=== PATIENT | male | born 1975 | race Caucasian/White ===

== ENCOUNTER 2016-12-31 02:10 | Observation (INO) | payer OTHER ==
[2016-12-31 02:29] VITALS: RESP 16
[2016-12-31] MEDS ORDERED: ACETAMINOPHEN TAB 325 MG TAB PO PRN (02:48)
[2016-12-31] MEDS ORDERED: HYDROmorphone 1 MG/ML 1 ML SYRINGE IV PRN (02:48)
[2016-12-31] MEDS ORDERED: NALOXONE 0.4 MG/ML 1 ML VIAL IV PRN (02:48)
[2016-12-31] MEDS ORDERED: ONDANSETRON 4 MG/2 ML VIAL IVP PRN (02:48)
--- NOTE | 2016-12-31 02:57 | ED ---
Abdominal Pain HPI - General Chief Complaint: Abdominal Pain Stated Complaint: abd pain Time Seen by Provider: 12/31/16 02:23 Source: patient, EMS Mode of arrival: EMS - History of Present Illness Initial Comments: This patient is a 41-year-old man transferred here from outside hospital. The patient went [facility] for abdominal pain. The pain has been going on for about 12 days. It is located in the left lower quadrant. Is aching and severe , though he has pain medication and now is down to mild to moderate. The patient states the pain is worse with outpatient and certainly movements. He kelsey had some improvement when he was given a course of ciprofloxacin by his physician for suspected urinary tract infection. It gone to see his doctor had a week of this medication, and then the pain started worsening again. Patient states that he has had diarrhea over the past week or so. Patient went to the other hospital [facility] and was diagnosed with diverticulitis with an abscess and requested to come here for further treatment. MD Complaint: abdominal pain Onset/Timin -: days(s) Location: LLQ Radiation: none Migration to: no migration Severity: severe Quality: aching Consistency: constant Improves With: medication Worsens With: bowel movement, other (Patient) Associated Symptoms: diarrhea, fever Treatments Prior to Arrival: other (Antibiotics) - Related Data Allergies Allergy/AdvReac Type Severity Reaction Status Date / Time No Known Allergies Allergy Verified 12/31/16 03:01 Review of Systems ROS Statement: Those systems with pertinent positive or pertinent negative responses have been documented in the HPI. ROS Other: All systems not noted in ROS Statement are negative. Constitutional: Reports: fever Respiratory: Denies: cough, dyspnea Cardiovascular: Denies: chest pain, palpitations, edema, syncope Gastrointestinal: Reports: abdominal pain, diarrhea. Denies: nausea, vomiting, constipation, melena, hematochezia Genitourinary: Denies: dysuria, hematuria, testicular pain Musculoskeletal: Denies: back pain Skin: Denies: rash Neurological: Denies: headache, weakness, numbness Past Medical History Past Medical History: No Reported History History of Any Multi-Drug Resistant Organisms: None Reported Past Surgical History: No Surgical Hx Reported Past Psychological History: No Psychological Hx Reported Smoking Status: Current every day smoker Past Alcohol Use History: None Reported Past Drug Use History: None Reported General Exam General appearance: alert, in no apparent distress Head exam: Present: atraumatic, normocephalic Eye exam: Present: normal appearance. Absent: scleral icterus, conjunctival injection ENT exam: Present: normal oropharynx Respiratory exam: Present: normal lung sounds bilaterally. Absent: respiratory distress, wheezes, rales, rhonchi, stridor Cardiovascular Exam: Present: regular rate, normal rhythm, normal heart sounds. Absent: systolic murmur, diastolic murmur, rubs, gallop GI/Abdominal exam: Present: soft, tenderness (Lower quadrant), guarding, normal bowel sounds. Absent: distended, rebound, rigid, mass, pulsatile mass, hernia Extremities exam: Present: normal inspection, normal capillary refill. Absent: pedal edema, calf tenderness Back exam: Present: normal inspection. Absent: CVA tenderness (R), CVA tenderness (L) Neurological exam: Present: alert Skin exam: Present: warm, dry, intact, normal color. Absent: rash Course Vital Signs 12/31/16 12/31/16 02:23 03:39 Temperature 97.3 F L 98.0 F Pulse Rate 78 83 Respiratory 16 16 Rate Blood Pressure 136/86 114/66 O2 Sat by Pulse 96 96 Oximetry Disposition Clinical Impression: Diverticulitis, Pelvic abscess Disposition: ADMITTED IP TO THIS HOSP Condition: Fair
[2016-12-31] MEDS: SODIUM CHLORIDE 0.9% 1,000 ML IV SCH ×3 (03:05→20:40)
[2016-12-31] MEDS: metroNIDAZOLE-NS PMX 500 MG in SALINE 1 100ML.BAG IVPB SCH ×3 (03:37→20:40)
[2016-12-31] MEDS: FAMOTIDINE 20 MG TAB PO SCH ×2 (08:59→20:40)
[2016-12-31] MEDS: LEVOFLOXACIN 750MG-D5W PMX 750 MG in DEXTROSE/WATER 1 150ML.BAG IVPB SCH (08:59)
--- NOTE | 2016-12-31 10:27 | P.GSCN ---
<Willa Chavez - Last Filed: 12/31/16 10:18> History of Present Illness Consult date: 12/31/16 Reason for Consult: Abdominal pain History of present illness: 41-year-old male presented to the emergency room at [facility] December 30 to be evaluated for persistent epigastric pain left lower quadrant frequency with urination onset 1 week prior. Patient stated that he was diagnosed and treated for urinary tract infection with Cipro 1 week prior when he presented to his PCPs office with the above-mentioned symptoms. Patient stated that he completed the antibiotic but the pain continued to persist. Patient points to the left lower quadrant as to the reference point. Patient stated that he had frequent loose stools intense pain unbearable to the left lower quadrant came into [facility] with the above findings. At [facility] a CAT scan of the abdomen pelvis with IV contrast showed severe sigmoid diverticulitis with a 2.4 cm mass between the sigmoid colon and the left pelvic sidewall patient elected to be transferred to [facility] in [place] to be treated for the above-mentioned symptoms. A surgical eval has been requested. Patient denies any prior episodes of abdominal pain C. diff obtained here was negative Patient continues to report having left lower quadrant pain but has improved since admission. Patient states he has not had any prior colonoscopy gives no significant past surgical or medical history Review of Systems unremarkable except as mentioned in the present illness Past Medical History Past Medical History: No Reported History History of Any Multi-Drug Resistant Organisms: None Reported Past Surgical History: No Surgical Hx Reported Past Anesthesia/Blood Transfusion Reactions: No Reported Reaction Past Psychological History: No Psychological Hx Reported Smoking Status: Current every day smoker Past Alcohol Use History: None Reported Past Drug Use History: None Reported - Past Family History Mother Additional Family Medical History / Comment(s): Spot on colon back in June, Cancer Father Family Medical History: Diabetes Mellitus Medications and Allergies Home Medications Medication Instructions Recorded Confirmed Type No Known Home Medications [No 12/31/16 12/31/16 History Known Home Medications] Allergies Allergy/AdvReac Type Severity Reaction Status Date / Time No Known Allergies Allergy Verified 12/31/16 09:06 Surgical - Exam Vital Signs Temp Pulse Resp BP Pulse Ox 97.3 F L 78 16 136/86 96 12/31/16 02:23 12/31/16 02:23 12/31/16 02:23 12/31/16 02:12/31/16 02:23 GENERAL APPEARANCE: 41-year-old male patient is alert, oriented, in no acute distress. VITAL SIGNS: Reviewed HEENT: Head is normocephalic and atraumatic. Pupils are equal and reactive. The nares are patent. Oropharynx is clear without lesions. NECK: Supple without lymphadenopathy. Traches midline. HEART: S1, S2. Regular rate and rhythm. No murmur noted LUNGS: No crackles or wheezes are heard. Adequate air movement bilaterally on room air no cough noted no shortness of breath ABDOMEN: Soft, slight tenderness left lower quadrant nondistended with good bowel sounds. No peritoneal signs. No palpable organomegaly or masses. Continues to report having frequent loose stools EXTREMITIES: Normal skin color and turgor. No cyanosis, rash, ulceration, clubbing or edema. Radial pedal pulses are 2/4 bilaterally. NEUROLOGICAL: No focal deficits. Strength and sensation are grossly intact. Assessment and Plan Plan: Impression Present on admission left lower quadrant pain with frequent stooling suspect due to severe sigmoid diverticulitis with 2.4 cm abscess between sigmoid colon and left pelvic sidewall Present on admission leukocytosis Frequent stooling with the stool negative for C. diff History of treatment for UTI completed antibiotic course of Cipro 1 week prior plan Continue IV antibiotic Flagyl and Levaquin as ordered Repeat labs in the morning DVT and GI prophylaxis Pain control Keep nothing by mouth Further surgical recommendations pending Thank you for allowing us to participate in the surgical management of your patient The above impression and plan of care have been discussed and directed by signing physician. Willa Chavez nurse practitioner acting as scribe for signing physician. <Emily Barriga N - Last Filed: 12/31/16 15:26> Surgical - Exam Vital Signs Temp Pulse Resp BP Pulse Ox 97.3 F L 78 16 136/86 96 12/31/16 02:23 12/31/16 02:23 12/31/16 02:12/31/16 02:23 12/31/16 02:23
[2016-12-31 17:41] LABS: Basophils # (A) 0.1 k/uL (0-0.2); Basophils % (A) 0 %; CH 29.8; CHCM 32.8; Eosinophils # (A) 0.2 k/uL (0-0.7); Eosinophils % (A) 1 %; HCT 38.8 % (39.0-53.0); HDW 2.76; HGB 13.2 gm/dL (13.0-17.5); Luc # (Auto) 0.31; Luc % (Auto) 3; Lymphocytes # (A) 1.9 k/uL (1.0-4.8); Lymphocytes % (A) 16 %; MCH 30.9 pg (25.0-35.0); Mean Platelet Volume 6.8; Monocytes # (A) 0.8 k/uL (0-1.0); Monocytes % (A) 7 %; Neutrophils # (A) 8.3 k/uL (1.3-7.7); Neutrophils % (A) 73 %; RBC 4.26 m/uL (4.30-5.90); RDW 12.3 % (11.5-15.5); WBC 11.5 k/uL (3.8-10.6)
--- NOTE | 2016-12-31 18:07 | P.PN ---
Progress Note - Text Patient reevaluated this evening. He reports his abdominal pain in the last 24 hours is moderately improved. He is passing flatus. He still reports left lower quadrant abdominal pain. He discloses a strong family history of stomach cancer in his grandfather as well as colon cancer in his mother. I reviewed with him need for upper and lower endoscopy within the next 6-8 weeks following his diverticulitis attack. Recommend dietary consultation for diverticulitis diet. May start liquid diet. Potential discharge in 24-48 hours pending clinical improvement. No need for IR drainage with small size of abscess which should improve with antibiotics.
--- NOTE | 2016-12-31 22:12 | P.HPIM ---
History of Present Illness H&P Date: 12/31/16 Chief Complaint: Abdominal pain Patient is a 41-year-old gentleman without significant past history was sent from [facility] for further evaluation of diverticulitis and abscess. Patient presented to hospital with complaints of abdominal pain mainly left lower quadrant. No fever but subjective chills. Pain worsens with movement.. No history of diverticulosis in the past. Patient was recently treated for urinary tract infection with ciprofloxacin. After completion of antibiotic course pain is still worsening which made him come to Hospital. Patient denied any chest pain or short of breath. No nausea vomiting or abdominal pain. Patient denied any prior history of hypertension or diabetes. At [facility] a CAT scan of the abdomen pelvis with IV contrast showed severe sigmoid diverticulitis with a 2.4 cm mass between the sigmoid colon and the left pelvic sidewall patient elected to be transferred to [place] in [facility]. Currently patient is nothing by mouth and was evaluated by general surgery recommended conservative management for small abscesses. Currently on antibiotics Levaquin and metronidazole. Currently patient did improve symptomatically. Review of Systems CONSTITUTIONAL: No fever, but subjective chills. no malaise, no fatigue. HEENT: No recent visual problems or hearing problems. Denied any sore throat. CARDIOVASCULAR: No chest pain, orthopnea, PND, no palpitations, no syncope. PULMONARY: , No cough or sputum production. no hemoptysis. GASTROINTESTINAL: No diarrhea, no nausea, no vomiting, positive left lower quadrant abdominal pain. NEUROLOGICAL: No headaches, no weakness, no numbness. HEMATOLOGICAL: Denies any bleeding or petechiae. GENITOURINARY: Denies any burning micturition, frequency, or urgency. MUSCULOSKELETAL/RHEUMATOLOGICAL: Denies any joint pain, swelling, or any muscle pain. ENDOCRINE: Denies any polyuria or polydipsia. The rest of the 14-point review of systems is negative. Past Medical History Past Medical History: No Reported History History of Any Multi-Drug Resistant Organisms: None Reported Past Surgical History: No Surgical Hx Reported Past Anesthesia/Blood Transfusion Reactions: No Reported Reaction Past Psychological History: No Psychological Hx Reported Smoking Status: Current every day smoker Past Alcohol Use History: None Reported Past Drug Use History: None Reported - Past Family History Mother Additional Family Medical History / Comment(s): Spot on colon back in June, Cancer Father Family Medical History: Diabetes Mellitus Medications and Allergies Home Medications Medication Instructions Recorded Confirmed Type No Known Home Medications [No 12/31/16 12/31/16 History Known Home Medications] Allergies Allergy/AdvReac Type Severity Reaction Status Date / Time No Known Allergies Allergy Verified 12/31/16 09:06 Physical Exam Vitals: Vital Signs Temp Pulse Pulse Resp BP BP Pulse Ox 12/31/16 07:00 97.8 F 74 16 119/71 98 12/31/16 04:03 98.6 F 73 16 122/70 92 L 12/31/16 03:39 98.0 F 83 16 114/66 96 12/31/16 02:23 97.3 F L 78 16 136/86 96 Intake and Output 12/30/16 12/31/16 12/31/16 22:59 06:59 14:59 Intake Total 250 Output Total 400 Balance -150 Intake: Intake, IV Titration 250 Amount Sodium Chloride 0.9% 1, 250 000 ml @ 125 mls/hr IV . Q8H [facility] Rx#:[id number] Output: Urine 400 Other: Voiding Method Toilet Weight 84.368 kg PHYSICAL EXAMINATION: Patient is lying in the bed comfortably, no acute distress, awake alert and oriented.. HEENT: Normocephalic. Neck is supple. Pupils reactive. Nostrils clear. Oral cavity is moist. Ears reveal no drainage. Neck reveals no JVD, carotid bruits, or thyromegaly. CHEST EXAMINATION: Trachea is central. Symmetrical expansion. Lung dominguez clear to auscultation and percussion. CARDIAC: Normal S1, S2 with no gallops. No murmurs ABDOMEN: Soft. Bowel sounds normal. No organomegaly. No abdominal bruits. Left lower quadrant tenderness with minimal rebound. Extremities reveal no edema. No clubbing or cyanosis Neurologically awake, alert, oriented x3 with well-coordinated movements. Skin: no rash or skin lesions Musculoskeletal: no joint swelling or deformity. Results CBC & Chem 7: 12/31/16 17:20 Thrombosis Risk Factor Assmnt - DVT/VTE Prophylaxis DVT/VTE Prophylaxis: Pharmacologic Prophylaxis ordered - Choose All That Apply Any of the Below Risk Factors Present?: Yes Each Factor Represents 1 point: Age 41-60 years Other Risk Factors: No Thrombosis Risk Factor Assessment Total Risk Factor Score: 1 Thrombosis Risk Factor Assessment Level: Low Risk Assessment and Plan Plan: #1 acute severe sigmoid diverticulitis with abscess/2.4 cm mass between colon and pelvic wall #2 left lower quadrant abdominal pain. #3 recent treatment for UTI with Cipro #4 DVT prophylaxis Plan: Patient be continued on IV hydration and continue with nothing by mouth. Continue with antibiotics. General surgery recommended conservative management due to small abscess. We will continue to follow closely. Further recommendations based on the clinical course. Recheck CBC and BMP tomorrow a.m.
[2017-01-01] MEDS: metroNIDAZOLE-NS PMX 500 MG in SALINE 1 100ML.BAG IVPB SCH ×2 (04:16→11:11)
[2017-01-01] MEDS: SODIUM CHLORIDE 0.9% 1,000 ML IV SCH ×2 (04:18→11:11)
[2017-01-01 07:43] VITALS: BP 110/77; PULSE 75; TEMP 97.9
[2017-01-01] MEDS: FAMOTIDINE 20 MG TAB PO SCH (08:08)
[2017-01-01] MEDS: LEVOFLOXACIN 750MG-D5W PMX 750 MG in DEXTROSE/WATER 1 150ML.BAG IVPB SCH (08:08)
[2017-01-01 09:00] LABS: Basophils # (A) 0.1 k/uL (0-0.2); Basophils % (A) 1 %; CH 30.6; CHCM 34.1; Eosinophils # (A) 0.2 k/uL (0-0.7); Eosinophils % (A) 2 %; HCT 39.2 % (39.0-53.0); HDW 2.79; Luc # (Auto) 0.18; Luc % (Auto) 2; Lymphocytes # (A) 2.2 k/uL (1.0-4.8); Lymphocytes % (A) 23 %; MCH 29.8 pg (25.0-35.0); MCHC 33.1 g/dL (31.0-37.0); MCV 90.1 fL (80.0-100.0); Mean Platelet Volume 7.9; Monocytes # (A) 0.7 k/uL (0-1.0); Monocytes % (A) 7 %; Neutrophils % (A) 65 %; RBC 4.35 m/uL (4.30-5.90); RDW 13.4 % (11.5-15.5); WBC 9.2 k/uL (3.8-10.6); WBC (Perox) 9.11
[2017-01-01] MEDS ORDERED: HEPARIN SODIUM,PORCINE 5,000 UNIT/ML 1 ML VIAL SQ SCH (09:00)
[2017-01-01 09:15] LABS: Anion Gap 13 mmol/L; Blood Urea Nitrogen 11 mg/dL (9-20); Calcium 8.6 mg/dL (8.4-10.2); Carbon Dioxide 21 mmol/L (22-30); Chloride 109 mmol/L (98-107); Glucose 75 mg/dL (74-99); Non-African American GFR(MDRD) >60 (>60 ml/min/1.73 sqM); Potassium 4.1 mmol/L (3.5-5.1); Sodium 143 mmol/L (137-145)
--- NOTE | 2017-01-01 11:30 | P.PN ---
Subjective 41-year-old gentleman was admitted for the diverticulitis and possibility of abscess. Patient was evaluated by surgery and surgery do not believe that patient needs surgical intervention at this point of time. Patient's pain is significantly controlled and patient is being started on full liquid diet today. Patient is able to tolerate antibiotics levofloxacin and metronidazole very well. Patient denied any fever, chills denied any abdominal pain has a couple loose stools today patient which is significantly improved compared to yesterday. Patient denied any cough shortness of breath. Objective - Vital Signs Vital signs: Vital Signs Temp 97.9 F 01/01/17 07:42 Pulse 75 01/01/17 07:42 Resp 16 01/01/17 07:42 BP 110/77 01/01/17 07:42 Pulse Ox 97 01/01/17 07:42 Intake & Output 12/31/16 01/01/17 01/01/17 18:59 06:59 18:59 Intake Total 938 2000 Balance 938 2000 Intake: Intake, IV Titration 938 2000 Amount Sodium Chloride 0.9% 1, 938 2000 000 ml @ 125 mls/hr IV . Q8H [facility] Rx#:[id number] Other: Voiding Method Toilet Toilet # Voids 3 - Exam PHYSICAL EXAMINATION: GENERAL: The patient is alert and oriented x3, not in any acute distress. Well developed, well nourished. HEENT: Pupils are round and equally reacting to light. EOMI. No scleral icterus. No conjunctival pallor. Normocephalic, atraumatic. No pharyngeal erythema. No thyromegaly. CARDIOVASCULAR: S1 and S2 present. No murmurs, rubs, or gallops. PULMONARY: Minimal expiratory wheezing was appreciated. ABDOMEN: Soft, nontender, nondistended, normoactive bowel sounds. No palpable organomegaly. MUSCULOSKELETAL: No joint swelling or deformity. EXTREMITIES: No cyanosis, clubbing, or pedal edema. NEUROLOGICAL: Gross neurological examination did not reveal any focal deficits. SKIN: No rashes. - Labs CBC & Chem 7: 01/01/17 07:40 01/01/17 07:40 Labs: Abnormal Lab Results - Last 24 Hours (Table) 12/31/16 01/01/17 Range/Units 17:20 07:40 WBC 11.5 H (3.8-10.6) k/uL RBC 4.26 L (4.30-5.90) m/uL Hct 38.8 L (39.0-53.0) % Neutrophils # 8.3 H (1.3-7.7) k/uL Chloride 109 H (98-107) mmol/L Carbon Dioxide 21 L (22-30) mmol/L Assessment and Plan Plan: #1 acute severe sigmoid diverticulitis with possible abscess: Continue with antibiotics, IV fluids patient will be advanced. #2 possible COPD with acute exacerbation, patient is a smoker never was diagnosed with COPD. Patient will be started on Symbicort and albuterol. #3 DVT prophylaxis
[2017-01-01] MEDS ORDERED: IPRATROPIUM-ALBUTEROL 3 ML NEB INHALATION PRN (11:31)
--- NOTE | 2017-01-01 13:13 | P.PN ---
Subjective Pleasant 41-year-old male sitting up in bed states there is less stooling this morning has only had 1. The stool is forming. He states he's having less abdominal pain. Denies any nausea vomiting tolerating diet of clear liquid The white count is down to 9.2 electrolytes within normal range is afebrile patient currently is on IV Flagyl and Levaquin for treatment of acute sigmoid diverticulitis with small abscess which should improve with antibiotic therapy Objective - Vital Signs Vital signs: Vital Signs Temp 97.9 F 01/01/17 07:42 Pulse 75 01/01/17 07:42 Resp 16 01/01/17 07:42 BP 110/77 01/01/17 07:42 Pulse Ox 97 01/01/17 07:42 Intake & Output 12/31/16 01/01/17 01/01/17 18:59 06:59 18:59 Intake Total 938 2000 Balance 938 2000 Intake: Intake, IV Titration 938 2000 Amount Sodium Chloride 0.9% 1, 938 2000 000 ml @ 125 mls/hr IV . Q8H [facility] Rx#:[id number] Other: Voiding Method Toilet Toilet # Voids 3 - Exam Physical exam 41-year-old male resting in bed appears in no acute distress pleasant cooperative oriented 3 Lungs essentially clear adequate air movement on room air no shortness of breath Heart S1-S2 audible regular Abdomen slight tenderness to the left lower quadrant states it's improving no nausea no vomiting no frequent stooling Extremities no edema - Labs CBC & Chem 7: 01/01/17 07:40 01/01/17 07:40 Labs: Abnormal Lab Results - Last 24 Hours (Table) 12/31/16 01/01/17 Range/Units 17:20 07:40 WBC 11.5 H (3.8-10.6) k/uL RBC 4.26 L (4.30-5.90) m/uL Hct 38.8 L (39.0-53.0) % Neutrophils # 8.3 H (1.3-7.7) k/uL Chloride 109 H (98-107) mmol/L Carbon Dioxide 21 L (22-30) mmol/L Assessment and Plan Plan: Impression Present on admission left lower quadrant pain with frequent stooling suspect due to severe sigmoid diverticulitis with 2.4 cm abscess between sigmoid colon and left pelvic sidewall Present on admission leukocytosis Frequent stooling with the stool negative for C. diff History of treatment for UTI completed antibiotic course of Cipro 1 week prior A positive family history of stomach cancer grandfather colon cancer mother plan Continue IV antibiotic Flagyl and Levaquin as ordered Repeat labs in the morning DVT and GI prophylaxis Pain control Advance diet Prepped for probable discharge in the next 24 hours Will need upper and lower endoscopic within the next 6-8 weeks following treatment for the diverticulitis Dietary consult for diverticulitis diet The above impression and plan of care have been discussed and directed by signing physician. Willa Chavez nurse practitioner acting as scribe for signing physician.
--- NOTE | 2017-01-01 14:42 | P.PN ---
Progress Note - Text Patient had tolerated full liquid diet stated there was a significant improvement in the left lower quadrant pain white count was down to 9.2 this morning electrolytes within therapeutic range patient was anxious to be discharged home. Patient was seen by the dietitian did receive information on a diverticulitis diet. Patient is also aware that he needs to have an upper and lower endoscopic done in 5-6 weeks he will schedule an appointment with Dr. Barriga. Did discuss with the attending who agreed the patient could be discharged The above impression and plan of care have been discussed and directed by signing physician. Willa Chavez nurse practitioner acting as scribe for signing physician.
[2017-01-01 14:43] VITALS: BMI 26.6
--- NOTE | 2017-01-01 15:09 | P.DS ---
Providers Date of admission: 12/31/16 02:53 Attending physician: Ezequiel Liu Consults: 12/31/16 02:49 Consult Physician Routine Consulting Provider: Emily Barriga Consult Reason/Comments: Diverticulitis with pelvic abscess Do you want consulting provider notified?: Already Contacted Primary care physician: Physician Nonstaff Hospital Course: Patient is being discharged today on oral antibiotics and patient is able to tolerate full liquid diet will be advanced to soft diet upon discharge. Patient Condition at Discharge: Fair Plan - Discharge Summary New Discharge Prescriptions: New metroNIDAZOLE [Flagyl] 500 mg PO TID #42 tab Levofloxacin [Levaquin] 500 mg PO DAILY #14 tab Discharge Medication List Levofloxacin [Levaquin] 500 mg PO DAILY #14 tab 01/01/17 [Rx] metroNIDAZOLE [Flagyl] 500 mg PO TID #42 tab 01/01/17 [Rx] Follow up Appointment(s)/Referral(s): Emily Barriga MD [STAFF PHYSICIAN] - 02/12/17 1:40 pm Nonstaff,Physician [Primary Care Provider] - 1-2 days Patient Instructions/Handouts: Diverticulitis (DC) Activity/Diet/Wound Care/Special Instructions: Dietitian to provide information on a diverticulitis diet advance diet as tolerated Will need to be scheduled for an upper or lower endoscopic within the next 6-8 weeks following treatment for his diverticulitis Discharge Disposition: HOME SELF-CARE
[2017-01-01] MEDS ORDERED: SYMBICORT 160-4.5 MCG INHALER INHALATION SCH (20:00)
== END 2017-01-01 16:30 | disposition home or self-care (01) ==
LOC: EC 02:10 → 3SUR 02:53 → INTOOBSV 02:53 → 3SUR 03:35
PROVIDERS: ADMIT Internal Medicine; ATTEND Internal Medicine
DX: K57.20 Diverticulitis of large intestine with perforation and abscess without bleeding (principal); D72.829 Elevated white blood cell count, unspecified; F17.200 Nicotine dependence, unspecified, uncomplicated; Z87.440 Personal history of urinary (tract) infections; Z80.0 Family history of malignant neoplasm of digestive organs; Z83.3 Family history of diabetes mellitus
CPT/HCPCS: 96361 ×2; 96366 ×2; 96367; 96372; 96365; 99285; 80048; 85025 ×2; 87324; G0378 ×2; J1644; J1956 ×2; 96360

== ENCOUNTER → 2018-06-20 | Outpatient (CLI) | payer OTHER ==
--- NOTE | 2018-06-22 17:01 | CT ---
EXAMINATION TYPE: CT abdomen pelvis w con DATE OF EXAM: 06/20/2018 COMPARISON: None HISTORY: possible bowel obstruction. Hx colon resection CT DLP: 1159 mGycm Automated exposure control for dose reduction was used. TECHNIQUE: Helical acquisition of images was performed from the lung bases through the pelvis. CONTRAST: Performed with Oral Contrast and with IV Contrast, patient injected with 100 mL of Isovue 300. FINDINGS: LUNG BASES: No significant abnormality is appreciated. LIVER/GB: No significant abnormality is appreciated. No cholelithiasis. PANCREAS: No significant abnormality is seen. SPLEEN: No significant abnormality is seen. ADRENALS: No significant abnormality is seen. KIDNEYS: 1.3 cm exophytic cyst emanates from the medial left kidney. Otherwise the kidneys enhance an d excrete symmetrically. No hydronephrosis. FREE AIR: No free air is visualized. ADENOPATHY: No greater than 1 cm short axis lymph node is seen within the abdomen or pelvis. REPRODUCTIVE ORGANS: Prostate gland is heterogenous. URINARY BLADDER: No significant abnormality is seen. OSSEOUS STRUCTURES: Moderate multilevel degenerative disc disease is seen of the spine. There is tra nsitional vertebrae seen at L5-S1. BOWEL: There is long segment thickening of the sigmoid colon that although may relate to incomplete distention this finding could relate to chronic diverticulitis. No current pericolonic fat stranding is seen to suggest acute diverticulitis at this time. Mucosal neoplasm is less likely but colonoscopy should be performed if not recently performed. Appendix is contrast-filled and within normal limits. No dilated large or small bowel. IMPRESSION: 1. NO EVIDENCE OF BOWEL OBSTRUCTION. 2. LONG SEGMENT BOWEL WALL THICKENING OF THE SIGMOID COLON WITHOUT CURRENT PERICOLONIC FAT STRANDING. FINDING MAY BE ON THE BASIS OF CHRONIC DIVERTICULITIS. EARLY DEVELOPING DIVERTICULITIS IS A POSSIBIL ITY. CORRELATE WITH CLINICAL SYMPTOMS. COLONOSCOPY IS RECOMMENDED IF NOT RECENTLY PERFORMED. 3.
== END ==
LOC: RADCTMAIN 14:22
PROVIDERS: ATTEND Surgery Plastic and Reconstructive Surgery
DX: K63.89 Other specified diseases of intestine (principal)
CPT/HCPCS: 74177; Q9967

== ENCOUNTER 2019-11-18 09:10 | Day surgery (SDC) | payer OTHER ==
[2019-11-16 08:56] VITALS: BMI 25.1
--- NOTE | 2019-11-18 08:46 | P.GSHP ---
History of Present Illness H&P Date: 11/18/19 CHIEF COMPLAINT: Colon screen HISTORY OF PRESENT ILLNESS: The patient is a 44-year-old male who presents for colon screen. Lower endoscopy was offered for further evaluation and management. PAST MEDICAL HISTORY: Please see list. PAST SURGICAL HISTORY: Please see list. MEDICATIONS: Please see list. ALLERGIES: Please see list. SOCIAL HISTORY: No illicit drug use FAMILY HISTORY: No reports of Crohn disease or ulcerative colitis. REVIEW OF ORGAN SYSTEMS: CONSTITUTIONAL: No reports of fevers or chills. PHYSICAL EXAM: VITAL SIGNS: Stable GENERAL: Well-developed pleasant in no acute distress. HEENT: No scleral icterus. Extraocular movements grossly intact. Moist buccal mucosa. NECK: Supple without lymphadenopathy. CHEST: Unlabored respirations. Equal bilateral excursions. CARDIOVASCULAR: Regular rate and rhythm. Distal 2+ pulses. ABDOMEN: Soft, nontender, nondistended. MUSCULOSKELETAL: No clubbing, cyanosis, or edema. ASSESSMENT: 1. Colon screen. PLAN: 1. Recommend proceeding with a lower endoscopy Past Medical History Past Medical History: Cancer Additional Past Medical History / Comment(s): "colon tumor",diverticulitis History of Any Multi-Drug Resistant Organisms: None Reported Past Surgical History: Bowel Resection Additional Past Surgical History / Comment(s): colonoscopy,EGD Past Anesthesia/Blood Transfusion Reactions: No Reported Reaction, Motion Sickness Additional Past Anesthesia/Blood Transfusion Reaction / Comment(s): no hx general anesthesia or blood transfusion Smoking Status: Current every day smoker - Past Family History Mother Family Medical History: Cancer Additional Family Medical History / Comment(s): colon Cancer Father Family Medical History: Diabetes Mellitus Medications and Allergies Home Medications Medication Instructions Recorded Confirmed Type No Known Home Medications 11/16/19 11/16/19 History Allergies Allergy/AdvReac Type Severity Reaction Status Date / Time varenicline [From Chantix] Allergy Rash/Hives Verified 11/16/19 08:50
[~2019-11-18 09:10] MED LIST: LACTATED RINGERS 1,000 ML IV SCH
[2019-11-18 09:33] VITALS: RESP 16; TEMP 97.1
[2019-11-18] MEDS ORDERED: PROPOFOL 10 MG/ML 20 ML VIAL IV ONE (10:20)
[2019-11-18] MEDS ORDERED: LIDOCAINE 1% INJ 10MG/ML (20 ML MDV) ONE (10:20)
--- NOTE | 2019-11-18 10:45 | P.PCN ---
Date of Procedure: 11/18/19 Description of Procedure: PREOPERATIVE DIAGNOSIS: Personal history of malignant polyp of the cecum, status post resection Status post ileocolectomy, right hemicolectomy POSTOPERATIVE DIAGNOSIS: Personal history of malignant polyp of the cecum, status post resection Status post ileocolectomy, right hemicolectomy Sigmoid diverticulosis OPERATION: Colonoscopy, complete to ileocolic anastomosis SURGEON: Emily Barriga MD. ANESTHESIA: MAC. INDICATIONS: The patient is a 44-year-old male who presents with prior history of malignant cecal polyp status post resection with ileocolectomy, 3 years ago. he presents for colon surveillance. Benefits and risks were described and informed consent was obtained. DESCRIPTION OF PROCEDURE: The patient had undergone Gatorade, MiraLAX and Dulcolax prep. He had been brought into endoscopy suite the left lateral decubitus position. After adequate intravenous sedation, the rectum was examined with 2% lidocaine jelly. No external hemorrhoids were encountered. The rectal tone was within normal limits. No lesions were palpated in the rectal vault. A prostate fossa was unremarkable. An Olympus colonoscope was advanced to the ileocolic anastomosis for complete colonoscopy. The prep was fair. Scattered sigmoid diverticulosis was encountered. No colonic polyps were found. No evidence of focal colitis was found. Retroflexion of the scope demonstrated grade 1 internal hemorrhoids without active bleeding or inflammation. The colon was desufflated. The patient had tolerated the procedure well. Withdrawal time was over 6 minutes. FINDINGS: Aronchick preparation quality scale 3 (1-5) Internal hemorrhoids, grade 1 No external prolapsed hemorrhoids. No arteriovenous malformations. No adenomatous polyps. No focal colitis. RECOMMENDATIONS: Lower endoscopy in 2024 Plan - Discharge Summary Discharge Rx Participant: No New Discharge Prescriptions: No Action No Known Home Medications Discharge Medication List No Known Home Medications 11/16/19 [History] Follow up Appointment(s)/Referral(s): Emily Barriga MD [STAFF PHYSICIAN] - As Needed Patient Instructions/Handouts: Diverticulosis (GEN), Diverticulosis Diet (GEN) Activity/Diet/Wound Care/Special Instructions: Repeat colonoscopy years, 2024 Discharge Disposition: HOME SELF-CARE
[2019-11-18 10:47] VITALS: BP 124/70; PULSE 63
== END 2019-11-18 11:15 | disposition home or self-care (01) ==
LOC: ORWHC2ENDO 09:10
PROVIDERS: ATTEND Surgery Plastic and Reconstructive Surgery
DX: Z12.11 Encounter for screening for malignant neoplasm of colon (principal); K57.30 Diverticulosis of large intestine without perforation or abscess without bleeding; Z98.0 Intestinal bypass and anastomosis status; Z85.038 Personal history of other malignant neoplasm of large intestine; K57.92 Diverticulitis of intestine, part unspecified, without perforation or abscess without bleeding; F17.210 Nicotine dependence, cigarettes, uncomplicated; Z80.0 Family history of malignant neoplasm of digestive organs; Z83.3 Family history of diabetes mellitus; Z79.899 Other long term (current) drug therapy
CPT/HCPCS: G0105; J2001; J2704; 45378